=== PATIENT | female | born 1930 | race Caucasian/White ===

== ENCOUNTER 2018-06-11 10:28 | Inpatient (IN) | payer MEDICARE ==
[~2018-06-11] VITALS: Ht 167.6 cm; Wt 71.9 kg
[~2018-06-11 10:28] MED LIST: AMBIEN5 MG PO; CLARINEX5 MG; DIOVAN HCT 3201 EACH; ENABLEX15 MG; PAXIL CR12.5 MG; PLAVIX75 MG PO; PREVACID30 M1; TOPROL XL100 MG; TRICOR145 MG; ULTRACET TABLE1 EACH
[2018-06-11 11:20] LABS: BASOPHILS # (AUTO) 0.1 (0.0-0.1); EOSINOPHILS # (AUTO) 0.2 (0.0-0.4); EOSINOPHILS % 3.1 % (0.0-6.0); HEMATOCRIT 29.2 % (34.2-44.1); HEMOGLOBIN 9.7 g/dL (12.0-16.0); LYMPHOCYTES # (AUTO) 0.7 (1.0-3.2); LYMPHOCYTES % 11.3 % (18.0-39.1); MEAN CORPUSCULAR HEMOGLOBIN 31.4 pg (28-32); MEAN CORPUSCULAR HGB CONC 33.2 g/dL (31-35); MEAN CORPUSCULAR VOLUME 94.5 fL (81-99); MONOCYTES # (AUTO) 0.4 (0.2-0.8); MONOCYTES % 6.6 % (4.4-11.3); NEUTROPHILS # (AUTO) 4.7 (2.1-6.9); NEUTROPHILS % 77.8 % (38.7-80.0); PLATELET COUNT 226 x10e3/uL (140-360); RED BLOOD COUNT 3.09 x10e6/uL (3.6-5.1); RED CELL DISTRIBUTION WIDTH 13.4 % (11.7-14.4)
[2018-06-11] MEDS ORDERED: ASPIRIN 81 MG CHEW TAB PO ONE (11:30)
--- NOTE | 2018-06-11 12:12 | Diagnostic Imaging Report ---
EXAMINATION: CHEST SINGLE (PORTABLE) INDICATION: Rectal bleeding ^ERMD ORDER ^[id number] ^1130 ^Y COMPARISON: None FINDINGS: AP view TUBES and LINES: None. LUNGS: Lungs are well inflated. Lungs are clear. Bilateral central pulmonary vascular congestion. PLEURA: No pleural effusion or pneumothorax. HEART AND MEDIASTINUM: Moderate enlargement of the cardiac silhouette. BONES AND SOFT TISSUES: No acute osseous lesion. Soft tissues are unremarkable. UPPER ABDOMEN: No free air under the diaphragm. IMPRESSION: Moderate enlargement of the cardiac silhouette with associated bilateral central pulmonary congestion. Signed by: Dr. Matilde Dunn M.D. on 06/11/2018 12:09 PM
[2018-06-11 12:13] LABS: ALBUMIN 3.3 g/dL (3.5-5.0); ALBUMIN/GLOBULIN RATIO 1.1 (0.8-2.0); ANION GAP 14.6 mmol/L (8-16); CALCIUM 9.7 mg/dL (8.4-10.2); CREATININE, SERUM 1.12 mg/dL (0.57-1.11); POTASSIUM 3.6 mmol/L (3.5-5.1)
[2018-06-11 12:19] LABS: CREATINE KINASE MB 4.1 ng/mL (0-5.0)
--- OUTSIDE RECORDS SUMMARY | 2018-06-11 13:36 | XMS REPORT ---
Author Author [facility] Address Unknown Phone Unavailable Care Team Providers Care Warehouse Puller Name Role Phone Mariella VICK Unavailable Unavailable Problems This patient has no known problems. Allergies, Adverse Reactions, Alerts This patient has no known allergies or adverse reactions. Medications This patient has no known medications. Results Test Description Test Time Test Comments Text Results Atomic Results Result Comments CHEST SINGLE (PORTABLE) 2018-06-11 12:08:00 [place] [address] Patient Name: CORNELIA BARRIOS MR #: [id number] : 1930 Age/Sex: 88/F Req #: [id number] Adm Physician: Ordered by: ALYSHA VICK MD Report #: [id number] Location: ER Room/Bed: Procedure: [id number] DX/CHEST SINGLE (PORTABLE) Exam Date: 06/11/18 Exam Time: 1130 REPORT STATUS: Signed EXAMINATION: CHEST SINGLE (PORTABLE) INDICATION: Rectal bleeding ERMD ORDER [id number] 1130 Y COMPARISON: None FINDINGS: AP view TUBES and LINES: None. LUNGS: Lungs are well inflated. Lungs are clear. Bilateral central pulmonary vascular congestion. PLEURA: No pleural effusion or pneumothorax. HEART AND MEDIASTINUM: Moderate enlargement of the cardiac silhouette. BONES AND SOFT TISSUES: No acute osseous lesion. Soft tissues are unremarkable. UPPER ABDOMEN: No free air under the diaphragm. IMPRESSION: Moderate enlargement of the cardiac silhouette with associated bilateral central pulmonary congestion. Signed by: Dr. Yeison Dunn M.D. on 06/11/2018 12:09 PM Dictated By: YEISON DUNN MD 08 Transcribed By: ERICK on 06/11/181208 COPY TO: ALYSHA VICK MD
[2018-06-11] MEDS ORDERED: LEXAPRO10 MG PO (14:06)
[2018-06-11] MEDS ORDERED: TYLENOL WITH C1 EACH PEG (14:06)
[2018-06-11] MEDS ORDERED: TEMAZEPAM15 MG PO (14:06)
[2018-06-11] MEDS ORDERED: OXYBUTYNIN CHLOR5 M1 PO (14:06)
[2018-06-11] MEDS ORDERED: METOPROLOL TART50 MG PO (14:06)
[2018-06-11 14:27] VITALS: BP 172/54
[2018-06-11 14:45] VITALS: BP 172/54
[2018-06-11 14:57] VITALS: BP 172/84
[2018-06-11] MEDS: SODIUM CHLORIDE 0.9% 1000ML 1,000 ML IV SCH (15:37)
[2018-06-11] MEDS: METRONIDAZOLE 500 MG TAB PO SCH ×2 (15:37→22:17)
[2018-06-11 20:00] VITALS: BP 169/89
[2018-06-11 20:10] VITALS: BP 169/89
[2018-06-11] MEDS: ZOLPIDEM TARTRATE 5 MG TAB PO PRN (22:17)
[2018-06-11] MEDS ORDERED: FLAGYL250 MG TP (22:34)
[2018-06-11] MEDS ORDERED: TRETINOIN20 G2 TOP (22:34)
[2018-06-11] MEDS ORDERED: VITAMIN D32000 UNIT PO (22:34)
[2018-06-11] MEDS ORDERED: SULFACETAMIDE3.5 GM TOP (22:34)
[2018-06-11] MEDS ORDERED: BISACODYL 5 MG TAB EC PO ONE ×2 (22:41→23:00)
[2018-06-11] MEDS ORDERED: CITRATE OF MAGNESIA 300ML BOTTLE PO ONE ×2 (23:00→23:30)
[2018-06-11 23:51] VITALS: BP 174/80
[2018-06-12] VITALS (8 sets, daily range): BP systolic 146–179; BP diastolic 67–103
[2018-06-12] MEDS ORDERED: ONDANSETRON HCL INJ 2 MG/ML VIAL IV STA (00:25)
[2018-06-12] MEDS ORDERED: ONDANSETRON HCL INJ 2 MG/ML VIAL IV PRN (00:30)
[2018-06-12] MEDS: SODIUM CHLORIDE 0.9% 1000ML 1,000 ML IV SCH ×3 (01:46→21:21)
[2018-06-12 05:39] LABS: BASOPHILS % 0.7 % (0.0-1.0); EOSINOPHILS # (AUTO) 0.2 (0.0-0.4); HEMATOCRIT 26.4 % (34.2-44.1); HEMOGLOBIN 8.8 g/dL (12.0-16.0); LYMPHOCYTES % 18.8 % (18.0-39.1); MEAN CORPUSCULAR HEMOGLOBIN 31.4 pg (28-32); MEAN CORPUSCULAR HGB CONC 33.3 g/dL (31-35); MEAN CORPUSCULAR VOLUME 94.3 fL (81-99); MONOCYTES # (AUTO) 0.5 (0.2-0.8); MONOCYTES % 9.7 % (4.4-11.3); NEUTROPHILS # (AUTO) 3.6 (2.1-6.9); NEUTROPHILS % 66.4 % (38.7-80.0); PLATELET COUNT 183 x10e3/uL (140-360); RED CELL DISTRIBUTION WIDTH 13.3 % (11.7-14.4)
[2018-06-12 05:58] LABS: ANION GAP 13.1 mmol/L (8-16); CALCIUM 9.4 mg/dL (8.4-10.2); CREATININE, SERUM 0.94 mg/dL (0.57-1.11); POTASSIUM 3.1 mmol/L (3.5-5.1)
[2018-06-12] MEDS: METRONIDAZOLE 500 MG TAB PO SCH ×3 (06:10→21:21)
[2018-06-12] MEDS: DARIFENACIN HYDROBROMIDE 7.5 MG PO SCH (09:00)
[2018-06-12] MEDS: CLARINEX PO SCH (09:00)
[2018-06-12] MEDS: PANTOPRAZOLE 40 MG 10ML VIAL IV SCH (09:25)
[2018-06-12] MEDS: PAROXETINE HCL 12.5 MG TABSR PO SCH (09:25)
[2018-06-12] MEDS ORDERED: POTASSIUM CHLORIDE 20 MEQ TAB CR PO STA ×2 (11:53→17:49)
[2018-06-12] MEDS: HYDRALAZINE HCL 20 MG/ML VIAL IV PRN (12:23)
[2018-06-12] MEDS ORDERED: POTASSIUM CHLORIDE 20MEQ/100ML 200 ML IV ONE (13:30)
[2018-06-12] MEDS ORDERED: PROPOFOL IV EMULSION 10 MG/ML 50 ML VIAL ONE (19:06)
[2018-06-12] MEDS ORDERED: EPINEPHRINE HCL INJ 1 MG/ML AMP ONE (19:06)
[2018-06-12] MEDS: ZOLPIDEM TARTRATE 5 MG TAB PO PRN (22:57)
[2018-06-12 23:58] LABS: INR 1.07; PARTIAL THROMBOPLASTIN TIME 29.8 seconds (23.8-35.5); PROTHROMBIN TIME 14.9 seconds (11.9-14.5)
[2018-06-13] VITALS (7 sets, daily range): BP systolic 146–162; BP diastolic 67–82
[2018-06-13] MEDS ORDERED: SODIUM CHLORIDE 0.9% 250ML 250 ML ONE (02:25)
[2018-06-13 05:54] LABS: BASOPHILS % 0.5 % (0.0-1.0); EOSINOPHILS # (AUTO) 0.1 (0.0-0.4); EOSINOPHILS % 3.2 % (0.0-6.0); HEMOGLOBIN 7.3 g/dL (12.0-16.0); LYMPHOCYTES # (AUTO) 0.7 (1.0-3.2); LYMPHOCYTES % 16.9 % (18.0-39.1); MEAN CORPUSCULAR HEMOGLOBIN 31.1 pg (28-32); MEAN CORPUSCULAR HGB CONC 32.4 g/dL (31-35); MEAN CORPUSCULAR VOLUME 95.7 fL (81-99); MONOCYTES # (AUTO) 0.4 (0.2-0.8); MONOCYTES % 9.6 % (4.4-11.3); NEUTROPHILS # (AUTO) 3.1 (2.1-6.9); NEUTROPHILS % 69.6 % (38.7-80.0); PLATELET COUNT 168 x10e3/uL (140-360); RED BLOOD COUNT 2.35 x10e6/uL (3.6-5.1); RED CELL DISTRIBUTION WIDTH 13.3 % (11.7-14.4)
[2018-06-13 06:08] LABS: HEMATOCRIT 22.5 % (34.2-44.1)
[2018-06-13] MEDS: SODIUM CHLORIDE 0.9% 1000ML 1,000 ML IV SCH ×2 (06:33→16:00)
[2018-06-13] MEDS: METRONIDAZOLE 500 MG TAB PO SCH (06:33)
[2018-06-13 06:34] LABS: ANION GAP 14.1 mmol/L (8-16); BLOOD UREA NITROGEN 11 mg/dL (7-26); BUN/CREATININE RATIO 14 (6-25); CALCIUM 8.8 mg/dL (8.4-10.2); CARBON DIOXIDE 24 mmol/L (22-29); CHLORIDE 104 mmol/L (98-107); EST GLOMERULAR FILTRATION RATE > 60 ML/MIN (60-); GLUCOSE 70 mg/dL (74-118); MAGNESIUM 1.8 MG/DL (1.3-2.1); POTASSIUM 3.1 mmol/L (3.5-5.1); SODIUM 139 mmol/L (136-145)
[2018-06-13] MEDS ORDERED: SODIUM CHLORIDE 0.9% 250ML 250 ML IV ONE (06:45)
[2018-06-13] MEDS ORDERED: SODIUM CHLORIDE 0.9% 1000ML 250 ML IV SCH (07:30)
[2018-06-13] MEDS ORDERED: POTASSIUM CHLORIDE 20 MEQ TAB CR PO STA (08:06)
[2018-06-13] MEDS: PAROXETINE HCL 12.5 MG TABSR PO SCH (09:00)
[2018-06-13] MEDS: PANTOPRAZOLE 40 MG 10ML VIAL IV SCH (09:00)
[2018-06-13] MEDS: CLARINEX PO SCH (09:00)
[2018-06-13] MEDS: DARIFENACIN HYDROBROMIDE 7.5 MG PO SCH (09:00)
[2018-06-13] MEDS ORDERED: POTASSIUM CHLORIDE 20 MEQ TAB CR PO ONE (10:30)
[2018-06-13] MEDS: HYDRALAZINE HCL 20 MG/ML VIAL IV PRN ×2 (10:38→18:26)
[2018-06-13] MEDS: ACETAMINOPHEN 325 MG TAB PO PRN (16:08)
[2018-06-13] MEDS: METOPROLOL TARTRATE 50 MG TAB PO SCH (16:35)
[2018-06-13] MEDS: ZOLPIDEM TARTRATE 5 MG TAB PO PRN (23:06)
[2018-06-14] VITALS (9 sets, daily range): BP systolic 142–190; BP diastolic 67–89
[2018-06-14] MEDS: SODIUM CHLORIDE 0.9% 1000ML 1,000 ML IV SCH ×3 (01:18→22:00)
[2018-06-14] MEDS: ACETAMINOPHEN 325 MG TAB PO PRN ×2 (03:13→17:15)
[2018-06-14 06:15] LABS: BASOPHILS % 0.5 % (0.0-1.0); EOSINOPHILS # (AUTO) 0.2 (0.0-0.4); EOSINOPHILS % 2.8 % (0.0-6.0); HEMATOCRIT 26.5 % (34.2-44.1); HEMOGLOBIN 8.8 g/dL (12.0-16.0); LYMPHOCYTES # (AUTO) 0.7 (1.0-3.2); MEAN CORPUSCULAR HGB CONC 33.2 g/dL (31-35); MEAN CORPUSCULAR VOLUME 93.3 fL (81-99); MONOCYTES # (AUTO) 0.6 (0.2-0.8); MONOCYTES % 10.4 % (4.4-11.3); NEUTROPHILS # (AUTO) 4.5 (2.1-6.9); NEUTROPHILS % 74.8 % (38.7-80.0); PLATELET COUNT 171 x10e3/uL (140-360); RED BLOOD COUNT 2.84 x10e6/uL (3.6-5.1); RED CELL DISTRIBUTION WIDTH 14.5 % (11.7-14.4)
[2018-06-14 06:39] LABS: INR 1.07; PROTHROMBIN TIME 14.9 seconds (11.9-14.5)
[2018-06-14 06:41] LABS: ANION GAP 11.9 mmol/L (8-16); BLOOD UREA NITROGEN 9 mg/dL (7-26); BUN/CREATININE RATIO 12 (6-25); CALCIUM 9.4 mg/dL (8.4-10.2); CARBON DIOXIDE 26 mmol/L (22-29); CHLORIDE 101 mmol/L (98-107); CREATININE, SERUM 0.77 mg/dL (0.57-1.11); EST GLOMERULAR FILTRATION RATE > 60 ML/MIN (60-); GLUCOSE 86 mg/dL (74-118); MAGNESIUM 1.5 MG/DL (1.3-2.1); POTASSIUM 3.9 mmol/L (3.5-5.1); SODIUM 135 mmol/L (136-145)
[2018-06-14] MEDS: METOPROLOL TARTRATE 50 MG TAB PO SCH ×2 (09:00→16:52)
[2018-06-14] MEDS: PANTOPRAZOLE 40 MG 10ML VIAL IV SCH (09:00)
[2018-06-14] MEDS: DARIFENACIN HYDROBROMIDE 7.5 MG PO SCH (09:00)
[2018-06-14] MEDS: PAROXETINE HCL 12.5 MG TABSR PO SCH (09:00)
[2018-06-14] MEDS: CLARINEX PO SCH (09:00)
[2018-06-14] MEDS: HYDRALAZINE HCL 20 MG/ML VIAL IV PRN ×3 (09:01→23:15)
[2018-06-14] MEDS: ZOLPIDEM TARTRATE 5 MG TAB PO PRN (23:11)
[2018-06-15] VITALS (7 sets, daily range): BP systolic 137–182; BP diastolic 70–95
[2018-06-15] MEDS ORDERED: PHYTONADIONE 10 MG/ML AMP SQ ONE (01:00)
--- NOTE | 2018-06-15 03:13 | Progress Note ---
DATE: June 14, 2018 INTERNAL MEDICINE PROGRESS NOTE Covering for Dr. Bryson Amaya. SUBJECTIVE: Ms. Kohler remains with slightly elevated blood pressure. She is getting some p.r.n. blood pressure medicines. She received 2 units of FFP yesterday and 1 packed red blood cell unit yesterday as well. No clinical bleeding for the last couple of days. No nausea. No emesis. REVIEW OF SYSTEMS: No headaches, no chest pain. OBJECTIVE VITAL SIGNS: Afebrile. Vital signs noted per electronic record. GENERAL: In no acute distress, currently calm. HEENT: Normocephalic, atraumatic. NECK: Supple. Throat midline. LUNGS: Bilateral air entry, clear. CARDIOVASCULAR: S1, S2. No murmurs, rubs or gallops. ABDOMINAL: Soft, nontender. EXTREMITIES: No clubbing, no cyanosis. There is no edema. INTEGUMENT: No rash or purpura. LABS: Potassium 3.9, BUN 9, creatinine 0.8. White count 6, hematocrit 27, platelets 139,000. IMPRESSION 1. Gastrointestinal bleed, diverticular. 2. Hypertension. 3. History of bioprosthetic valve replacement. 4. Possible atrial fibrillation versus coronary artery disease, on Plavix as an outpatient. 5. Insomnia. 6. Allergies. PLAN: At this time, we will repeat labs in the morning. Follow up for clinical bleeding. Increase her diet. We still need to decide home health scheduler on the need for Plavix resumption based on her clinical needs. Repeat hematocrit in the morning. Control blood pressure. Job#: [id number]
[2018-06-15] MEDS: ACETAMINOPHEN 325 MG TAB PO PRN ×2 (04:00→10:03)
[2018-06-15] MEDS: HYDRALAZINE HCL 20 MG/ML VIAL IV PRN ×2 (04:53→08:53)
[2018-06-15 05:40] LABS: BASOPHILS % 0.4 % (0.0-1.0); EOSINOPHILS # (AUTO) 0.1 (0.0-0.4); EOSINOPHILS % 1.3 % (0.0-6.0); HEMATOCRIT 26.8 % (34.2-44.1); HEMOGLOBIN 9.2 g/dL (12.0-16.0); LYMPHOCYTES # (AUTO) 0.7 (1.0-3.2); LYMPHOCYTES % 8.6 % (18.0-39.1); MEAN CORPUSCULAR HEMOGLOBIN 31.5 pg (28-32); MEAN CORPUSCULAR HGB CONC 34.3 g/dL (31-35); MEAN CORPUSCULAR VOLUME 91.8 fL (81-99); MONOCYTES # (AUTO) 0.9 (0.2-0.8); NEUTROPHILS # (AUTO) 6.1 (2.1-6.9); NEUTROPHILS % 78.1 % (38.7-80.0); PLATELET COUNT 195 x10e3/uL (140-360); RED BLOOD COUNT 2.92 x10e6/uL (3.6-5.1); RED CELL DISTRIBUTION WIDTH 14.4 % (11.7-14.4)
--- NOTE | 2018-06-15 06:31 | Diagnostic Imaging Report ---
CHEST SINGLE (PORTABLE), 06/15/2018 5:00 AM Technique: CHEST SINGLE (PORTABLE) Comparison: 06/11/2018 Clinical history: Congestive heart failure Findings: See Impression Impression: 1. Stable enlarged cardiomediastinal silhouette with aortic calcifications. Large hiatal hernia. 2. Central vascular congestion and/or edema. No consolidation. 3. Small pleural effusions. Signed by: Dr Esther Solomon MD on 06/15/2018 6:28 AM
[2018-06-15] MEDS: CLARINEX PO SCH (09:00)
[2018-06-15] MEDS: PAROXETINE HCL 12.5 MG TABSR PO SCH (09:00)
[2018-06-15] MEDS: DARIFENACIN HYDROBROMIDE 7.5 MG PO SCH (09:47)
[2018-06-15] MEDS: PANTOPRAZOLE 40 MG 10ML VIAL IV SCH (09:47)
[2018-06-15] MEDS: METOPROLOL TARTRATE 50 MG TAB PO SCH (09:47)
[2018-06-15] MEDS ORDERED: FUROSEMIDE 20 MG TAB PO ONE (11:00)
--- NOTE | 2018-06-16 02:02 | Progress Note ---
DATE: No Dictation 00:04 seconds Job#: [id number]
--- NOTE | 2018-06-16 03:46 | Discharge Summary ---
Coverage for Dr. Amaya. PRIMARY CARE DOCTOR: Dr. Kaelyn Toussaint PRIMARY DIAGNOSES 1. Gastrointestinal bleed, acute. 2. Diverticulosis. SECONDARY DIAGNOSES 1. Atrial fibrillation history. 2. Plavix use. 3. Hypertension. 4. Reported bioprosthetic valve replacement. 5. Allergies. Please note, history was limited by patient and spouse's ability to provide history. HOSPITAL COURSE: Patient came in with bleed. Patient with bright red blood per rectum. Opening hematocrit was 29, but went to 22.5%. Patient received blood transfusions. Patient went for emergency endoscopy, which demonstrated multiple diverticulosis. The Plavix was stopped. Patient was given medical records of the chemistries, blood counts, as well as endoscopy report. Communication to be sent to her PCP to notify her of the need to decide soon if Plavix is obligatory versus optional. Furthermore, other options can be taken as per the treating team that knows her very well at [facility]. MEDICATION ON DISCHARGE: See discharge medication records for details. ACTIVITY: As tolerated. DIET: GI bland diet. FOLLOWUP: Follow up with Drs. Kaelyn Toussaint and Danny Smith within a couple of weeks. Greater than 30 minutes in care and coordination for this discharge. LEXIE RABAGO MD Job#: [id number] CQ
== END 2018-06-15 14:48 | disposition home or self-care (01) | DRG 378 ==
LOC: ER 10:28 → ERHOLD 13:34 → IMCU 14:23 → MED/SURG 18:15 → OBSVTOIN 06-13 13:07
PROVIDERS: ADMIT Internal Medicine; ATTEND Internal Medicine
PROC: 0DJD8ZZ Inspection of Lower Intestinal Tract, Via Natural or Artificial Opening Endoscopic (ICD-10-PCS; principal; 2018-06-12 15:47)
PROC: 30233K1 Transfusion of Nonautologous Frozen Plasma into Peripheral Vein, Percutaneous Approach (ICD-10-PCS; 2018-06-13)
PROC: 30233N1 Transfusion of Nonautologous Red Blood Cells into Peripheral Vein, Percutaneous Approach (ICD-10-PCS; 2018-06-13)
DX: K57.91 Diverticulosis of intestine, part unspecified, without perforation or abscess with bleeding (principal); D62 Acute posthemorrhagic anemia; D68.9 Coagulation defect, unspecified; I48.91 Unspecified atrial fibrillation; Z79.01 Long term (current) use of anticoagulants; I10 Essential (primary) hypertension; Z95.2 Presence of prosthetic heart valve; I25.10 Atherosclerotic heart disease of native coronary artery without angina pectoris; E78.5 Hyperlipidemia, unspecified; K21.9 Gastro-esophageal reflux disease without esophagitis; F32.9 Major depressive disorder, single episode, unspecified; Z88.0 Allergy status to penicillin; E87.6 Hypokalemia; G47.00 Insomnia, unspecified
CPT/HCPCS: 36415; 45378; 71045; 80048; 80053; 82550; 82553; 83690; 83735; 84484; 85025; 85610; 85730; 86850; 86900; 86920; 93005; 96367; 96374; 96376; 99284; G0378; J0171; J0360; J2405; J3430; J3480; J7030; J7050; P9016; P9017

== ENCOUNTER 2019-06-13 17:18 | Emergency (ER) | payer MEDICARE ==
[~2019-06-13] VITALS: Ht 160 cm; Wt 61.7 kg
[~2019-06-13 17:18] MED LIST changes: +FLAGYL250 MG TP; +LEXAPRO10 MG PO; +METOPROLOL TART50 MG PO; +OXYBUTYNIN CHLOR5 M1 PO; +SULFACETAMIDE3.5 GM TOP; +TEMAZEPAM15 MG PO; +TRETINOIN20 G2 TOP; +TYLENOL WITH C1 EACH PEG; +VITAMIN D32000 UNIT PO
[2019-06-13] MEDS ORDERED: TETANUS/DIPHTHERIA TOX ADULT 0.5 ML SYR IM ONE (18:15)
[2019-06-13] MEDS ORDERED: TETANUS/DIPHTHERIA TOX ADULT 0.5 ML SYR ONE (18:37)
[2019-06-13] MEDS ORDERED: SODIUM CHLORIDE 0.9% 500ML 500 ML IV ONE (19:00)
[2019-06-13] MEDS ORDERED: SODIUM CHLORIDE 0.9% 500ML 0 ML ONE (19:07)
[2019-06-13] MEDS ORDERED: MORPHINE SULFATE INJ 4 MG/ML INJ 1ML ONE (19:07)
--- NOTE | 2019-06-13 19:08 | Diagnostic Imaging Report ---
Exam: Right femur 2 views and hip 2 views History: Pain Comparison: None. Findings: No fracture or malalignment. Mild hip degenerative arthrosis. No abnormal soft tissue calcification or soft tissue defect. Impression: No acute osseous abnormality Signed by: Dr. Bryson Rosales M.D. on 06/13/2019 7:05 PM
[2019-06-13] MEDS ORDERED: MORPHINE SULFATE 2 MG/ML SYR 1ML IV ONE (19:15)
[2019-06-13] MEDS ORDERED: MORPHINE SULFATE 5 MG/ML VIAL IV ONE (19:15)
[2019-06-13] MEDS ORDERED: SODIUM CHLORIDE 0.9% 500ML 500 ML ONE (19:19)
[2019-06-13] MEDS ORDERED: HYDROCODONE/APAP 5MG-325MG TAB PO ONE (19:30)
--- NOTE | 2019-06-13 19:44 | Diagnostic Imaging Report ---
EXAMINATION: Head CT without contrast. HISTORY:Status post fall, patient on blood thinners. COMPARISON:None. TECHNIQUE: Multidetector axial images were obtained from the foramen magnum to the vertex without contrast. The images were reconstructed using brain and bone algorithms. Thin section brain images were reformatted into coronal and sagittal planes. Dose modulation, iterative reconstruction, and/or weight based adjustment of the mA/kV was utilized to reduce the radiation dose to as low as reasonably achievable. Intravenous contrast: None IMAGE QUALITY: Acceptable. FINDINGS: Skull/scalp: No lytic or blastic. lesions. No surgical changes. Parenchyma: Nonspecific bilateral frontoparietal confluent periventricular, subcortical and deep white matter hypodensity are likely related to small vessel ischemic changes. No acute hemorrhage, mass or acute major vascular territorial infarct. Arteries: No density suggestive of thrombosis. Dural sinuses: No abnormal density suggestive of thrombosis. Ventricles: No hydrocephalus or displacement. Extra-axial spaces: A 1 x 0.3 cm right frontal extra-axial calcified lesion may represent a small calcified meningioma. No surrounding mass effect or edema. Brain volume: Normal for age. Craniocervical junction: No mass, Chiari malformation, or basilar invagination. Sella: No mass. Paranasal/mastoid sinuses: Imaged portions unremarkable. IMPRESSION: No acute intracranial abnormality. Diffuse, severe supratentorial white matter microvascular ischemic changes versus chronic hypertensive encephalopathy. Signed by: Dr. Ina Fonseca M.D. on 06/13/2019 7:40 PM
--- NOTE | 2019-06-13 19:51 | Diagnostic Imaging Report ---
History: Status post fall. Comparison studies: None Technique: Axial images were obtained through the cervical region.. Coronal and sagittal images reconstructed from the axial data. Dose modulation, iterative reconstruction, and/or weight based adjustment of the mA/kV was utilized to reduce the radiation dose to as low as reasonably achievable. Intravenous contrast: None Findings: Fractures: None. Soft tissue injuries: None. Atlantoaxial articulation: Intact. Alignment: Reversal of normal cervical lordosis. No scoliosis. 2 mm grade 1 anterolisthesis at C2-C3, 3 mm grade 1 anterolisthesis at C3-C4, C4-C5 are likely degenerative. Cervicomedullary junction: No abnormalities. The foramen magnum is patent. Soft tissues: Atherosclerotic calcification in bilateral carotid bulb. Vertebrae: No fractures, infection or neoplasm. Degenerative changes: C2-C3: Mild bilateral foraminal stenosis due to facet and uncovertebral arthrosis. C3-C4: Severe right foraminal stenosis due to facet and uncovertebral arthrosis. C4-C5: Severe degenerative disc disease. Posterior disc osteophyte complex results in mild canal stenosis. Mild right and moderate left foraminal stenosis due to facet and uncovertebral arthrosis. C5-C6: Severe degenerative disc disease. Moderate right foraminal stenosis due to uncovertebral arthrosis. C6-C7: Moderate degenerative disc disease. Mild right foraminal stenosis due to uncovertebral arthrosis.. IMPRESSION: 1. No acute cervical spine fracture. Reversal of normal cervical lordosis may be positional, due to degenerative changes and/or muscle spasm. 2. Ligament, spinal cord and or vascular abnormalities cannot be excluded on the basis of this examination. 3. Grade 1 anterolisthesis at C2-C3, C3-C4 and C4-C5 are likely degenerative. 4. Multilevel cervical spondylosis as detailed above. Signed by: Dr. Ina Fonseca M.D. on 06/13/2019 7:47 PM
--- NOTE | 2019-06-13 20:00 | NUR ---
PT STATED SHE DOES NOT WANT TO BE ADMITTED TO THE MAIN HOSPITAL, DR SINGH NOTIFIED, PT IS AWARE OF RISK AND BENIFITS OF LEAVING AGAINST MEDICAL ADVICE, PT SIGNED AMA AND PLACED IN CHART
[2019-06-13 20:19] VITALS: BP 170/77
== END 2019-06-13 20:05 | disposition left against medical advice (07) ==
LOC: FSED 17:18
DX: S00.83XA Contusion of other part of head, initial encounter (principal); S70.11XA Contusion of right thigh, initial encounter; S40.211A Abrasion of right shoulder, initial encounter; M25.551 Pain in right hip; M16.11 Unilateral primary osteoarthritis, right hip; W18.30XA Fall on same level, unspecified, initial encounter; Y92.008 Other place in unspecified non-institutional (private) residence as the place of occurrence of the external cause; I10 Essential (primary) hypertension; I48.20 Chronic atrial fibrillation, unspecified; D64.9 Anemia, unspecified
CPT/HCPCS: 70450; 72125; 73502; 73552; 80053; 81003; 82270; 84484; 85025; 90471; 90714; 93005; 99284; J7040; J2270

== ENCOUNTER 2019-09-09 11:51 | Inpatient (IN) | payer MEDICARE ==
[~2019-09-09] VITALS: Ht 160 cm; Wt 58.1 kg
[2019-09-09] MEDS ORDERED: ONDANSETRON HCL INJ 2MG/ML 2ML 2 MG/ML VIAL IV STA (12:06)
[2019-09-09] MEDS ORDERED: SODIUM CHLORIDE 0.9% 1000ML 1,000 ML IV STA (12:06)
[2019-09-09] MEDS ORDERED: PANTOPRAZOLE 40 MG 10ML VIAL IV STA (12:06)
[2019-09-09] MEDS ORDERED: PANTOPRAZOLE 40 MG 10ML VIAL IV NR (12:30)
[2019-09-09 12:53] LABS: BASOPHILS % 0.3 % (0.0-1.0); EOSINOPHILS # (AUTO) 0.1 (0.0-0.4); LYMPHOCYTES # (AUTO) 0.6 (1.0-3.2); LYMPHOCYTES % 10.2 % (18.0-39.1); MEAN CORPUSCULAR HEMOGLOBIN 26.3 pg (28-32); MEAN CORPUSCULAR HGB CONC 29.7 g/dL (31-35); MEAN CORPUSCULAR VOLUME 88.5 fL (81-99); MONOCYTES # (AUTO) 0.3 (0.2-0.8); MONOCYTES % 4.4 % (4.4-11.3); NEUTROPHILS # (AUTO) 5.2 (2.1-6.9); NEUTROPHILS % 83.5 % (38.7-80.0); PLATELET COUNT 372 x10e3/uL (140-360); RED CELL DISTRIBUTION WIDTH 18.9 % (11.7-14.4)
[2019-09-09 13:14] LABS: INR 1.03
[2019-09-09 13:15] LABS: HEMATOCRIT 19.2 % (34.2-44.1); HEMOGLOBIN 5.7 g/dL (12.0-16.0); PARTIAL THROMBOPLASTIN TIME 36.5 seconds (23.8-35.5)
[2019-09-09] MEDS ORDERED: SODIUM CHLORIDE 0.9% 250ML 250 ML IV ONE (13:15)
[2019-09-09 13:16] LABS: RED BLOOD COUNT 2.17 x10e6/uL (3.6-5.1)
[2019-09-09 13:21] LABS: ALBUMIN 2.6 g/dL (3.5-5.0); ALBUMIN/GLOBULIN RATIO 0.9 (0.8-2.0); ANION GAP 13.4 mmol/L (8-16); CALCIUM 9.4 mg/dL (8.4-10.2); CREATININE, SERUM 0.92 mg/dL (0.57-1.11); MAGNESIUM 1.5 MG/DL (1.3-2.1); POTASSIUM 3.4 mmol/L (3.5-5.1)
[2019-09-09 13:40] LABS: THYROID STIMULATING HORMONE 2.318 uIU/mL (0.350-4.940)
--- NOTE | 2019-09-09 13:44 | Diagnostic Imaging Report ---
EXAMINATION: CHEST SINGLE (PORTABLE) INDICATION: ^UNABLE TO EAT, DYSPHAGIA TO SOLIDS ^[id number] ^1223 COMPARISON: 06/15/2018 FINDINGS: AP view TUBES and LINES: None. LUNGS: Lungs are well inflated. Bilateral central pulmonary vascular congestion. No lobar consolidations. The visualized trachea is patent. PLEURA: No pleural effusion or pneumothorax. HEART AND MEDIASTINUM: Stable moderate enlargement of the cardiac silhouette. Mild calcifications of the aortic arch. BONES AND SOFT TISSUES: No acute osseous lesion. Soft tissues are unremarkable. UPPER ABDOMEN: No free air under the diaphragm. IMPRESSION: Stable cardiomegaly with associated central pulmonary vascular congestion. Signed by: Dr. Matilde Dunn M.D. on 09/09/2019 1:41 PM
[2019-09-09] MEDS ORDERED: SODIUM CHLORIDE 0.9% 1000ML 1,000 ML IV ONE (14:30)
--- NOTE | 2019-09-09 14:40 | NUR ---
H&P [id number]
[2019-09-09] MEDS ORDERED: SODIUM CHLORIDE 0.9% 250ML 250 ML ONE ×2 (17:19→23:52)
[2019-09-09] MEDS: METOPROLOL TARTRATE 50 MG TAB PO SCH (17:51)
[2019-09-09 21:50] VITALS: BP 104/90
[2019-09-09] MEDS: TEMAZEPAM 15 MG CAP PO SCH (21:50)
--- NOTE | 2019-09-09 21:50 | NUR ---
patient received to room 187 via stretcher from the emergency room. vss. no c/o pain noted. patient to receive second unit of blood tonight. patient verbalizes understanding of this. admit assessment/history complete. call jarrell placed within reach. patient instructed to call for assistance when needed.
--- NOTE | 2019-09-09 21:58 | History and Physical ---
REASON FOR REFERRAL: GI bleeding. PRIMARY CARE DOCTOR: Dr. Kaelyn Toussaint, Kailee Escalera. HOSPITAL PHYSICIAN: Dr. Bryson Amaya. This is covering for Dr. Bryson Amaya. HISTORY OF PRESENT ILLNESS: Ms. Kohler is a pleasant 89-year-old female with weakness. The patient came to emergency room and hemoglobin was found to be 5.7. No balta GI bleeding. No nausea, no vomiting, no diarrhea. The patient had blood pressure of 125/86, heart rate 91. At this point, the patient was hospitalized. On rectal exam, the ER physician claimed he noted melena. PAST MEDICAL HISTORY: Atrial fibrillation, hypertension, possible bioprosthetic valve replacement. PAST SURGICAL HISTORY: The patient with history of multiple endoscopies in the past as noted per the records including colonoscopy report May 2018 with diverticulosis. History of dilation of esophageal stricture. MEDICATION: Medication list reviewed per the chart record. ALLERGIES: PENICILLINS. SOCIAL HISTORY: No smoking, no drinking, no drugs. FAMILY HISTORY: Noncontributory. REVIEW OF SYSTEMS: GENERAL: No weight changes. OPHTHALMOLOGIC: No floaters. ENT: No mouth ulcers. ENDOCRINE: No balta thyroid abnormality. PULMONARY: No asthma. CARDIAC: No heart attack. GI: No constipation. There is some diarrhea. : No blood in urine. NEUROLOGIC: No seizures. PSYCHIATRIC: No depression. LABORATORY DATA: Labs reviewed per the chart record. Coagulation time 1.03 INR. PHYSICAL EXAMINATION: VITAL SIGNS: Noted and reviewed per the chart record. GENERAL: In no acute distress. Alert and calm. HEENT: Normocephalic, atraumatic. NECK: Supple. Throat midline. LUNGS: Bilateral air entry, mostly clear, but a few rhonchi. CARDIOVASCULAR: S1 and S2. No murmurs, rubs, or gallops. ABDOMEN: Soft, nontender. EXTREMITIES: No clubbing, no cyanosis, no edema. INTEGUMENT: No rash. No purpura. IMPRESSION AND PLAN: 1. Symptomatic anemia. 2. Suspected upper GI bleed with reported melena. 3. History of diverticulosis. 4. History of esophageal stricture and dilatation. 5. History of atrial fibrillation, but no notes of any chronic anticoagulation. 6. Hypertension. 7. History of bioprosthetic valve replacement. 8. History of allergies. FOLLOWUP: Active treatment is ongoing. GI was reconsulted to evaluate. Hold blood thinners. Control blood pressure and other supportive therapy. Thank you very much, Dr. Kaelyn Toussaint in [facility]. Please call for questions. MD VIKKI Hernandez/MODL /[id number]
[2019-09-09 23:11] LABS: CREATINE KINASE MB 0.9 ng/mL (0-5.0)
[2019-09-10] VITALS (8 sets, daily range): BP systolic 106–160; BP diastolic 67–86
--- NOTE | 2019-09-10 | NUR ---
second unit of blood initiated and infusing without difficulty. vss. no c/o pain noted. respirations even and unlabored. no transfusion reaction noted after 30 min.
[2019-09-10] MEDS: PANTOPRAZOLE 40 MG 10ML VIAL IV SCH ×3 (02:44→20:13)
--- NOTE | 2019-09-10 03:40 | NUR ---
Second unit of blood complete at this time. vss. no c/o pain noted. respirations even and unlabored. no blood transfusion reaction noted.
[2019-09-10 05:50] LABS: BASOPHILS % 0.4 % (0.0-1.0); EOSINOPHILS # (AUTO) 0.1 (0.0-0.4); EOSINOPHILS % 2.6 % (0.0-6.0); HEMOGLOBIN 7.2 g/dL (12.0-16.0); LYMPHOCYTES # (AUTO) 0.9 (1.0-3.2); LYMPHOCYTES % 19.4 % (18.0-39.1); MEAN CORPUSCULAR HEMOGLOBIN 27.8 pg (28-32); MEAN CORPUSCULAR HGB CONC 31.9 g/dL (31-35); MEAN CORPUSCULAR VOLUME 87.3 fL (81-99); MONOCYTES # (AUTO) 0.4 (0.2-0.8); MONOCYTES % 8.6 % (4.4-11.3); NEUTROPHILS # (AUTO) 3.2 (2.1-6.9); NEUTROPHILS % 68.6 % (38.7-80.0); PLATELET COUNT 253 x10e3/uL (140-360); RED BLOOD COUNT 2.59 x10e6/uL (3.6-5.1); RED CELL DISTRIBUTION WIDTH 17.1 % (11.7-14.4)
[2019-09-10 06:13] LABS: CREATINE KINASE MB 1.5 ng/mL (0-5.0)
[2019-09-10 06:14] LABS: HEMATOCRIT 22.6 % (34.2-44.1)
[2019-09-10 06:46] LABS: ALANINE AMINOTRANSFERASE 7 IU/L (0-55); ALBUMIN 2.2 g/dL (3.5-5.0); ALBUMIN/GLOBULIN RATIO 0.9 (0.8-2.0); ALKALINE PHOSPHATASE 61 IU/L (40-150); ANION GAP 10.1 mmol/L (8-16); BLOOD UREA NITROGEN 35 mg/dL (7-26); BUN/CREATININE RATIO 43 (6-25); CALCIUM 8.7 mg/dL (8.4-10.2); CARBON DIOXIDE 27 mmol/L (22-29); CHLORIDE 107 mmol/L (98-107); CREATININE, SERUM 0.81 mg/dL (0.57-1.11); EST GLOMERULAR FILTRATION RATE > 60 ML/MIN (60-); GLUCOSE 89 mg/dL (74-118); POTASSIUM 3.1 mmol/L (3.5-5.1); SODIUM 141 mmol/L (136-145)
--- NOTE | 2019-09-10 07:41 | NUR ---
PT VS STABLE, LEAVING FOR PROCEDURE
--- NOTE | 2019-09-10 09:57 | Consultation ---
DATE OF CONSULTATION: 09/10/2019 HISTORY OF PRESENT ILLNESS: This is an 89-year-old, who presented to the hospital because of weakness and was found to have anemia with hemoglobin 5.7, and also apparently has been having some black stool. She denies any abdominal pain along with this problem. PAST MEDICAL PROBLEMS: Include atrial fibrillation, hypertension, possible bioprosthetic valve replacement. ALLERGIES: PENICILLIN. SOCIAL HISTORY: No alcohol use. FAMILY HISTORY: Noncontributory. MEDICATIONS: At home includin. . 2. Lexapro. 3. Tricor. 4. Prevacid. 5. Metoprolol. 6. Flagyl. 7. Temazepam. REVIEW OF SYSTEMS: Denies any chest pain or shortness of breath. Denies any dyspepsia or dysphagia. Denies any odynophagia. Denies any dysuria, hematuria, or any kind of syncopal episode. PHYSICAL EXAMINATION: GENERAL: Awake, alert, appears to be stable. Not in acute distress at this point. VITAL SIGNS: Afebrile, currently without vital signs. HEAD, EYES, EARS, NOSE, AND THROAT: Normocephalic, atraumatic. Sclerae are anicteric. NECK: Supple. HEART: Regular. LUNGS: Clear. ABDOMEN: Soft. There is no distention at this point and is nontender. EXTREMITIES: No clubbing. LABORATORY VALUES: Significant for today WBC 4.63, hemoglobin of 7.2, after blood transfusions, it was 5.7 on admissions, hematocrit of 22.6 and BUN of 35 and a creatinine of 0.8. Liver enzymes appear to be normal on admission. IMPRESSION: 1. Gastrointestinal bleed with melena. 2. Dysphagia. 3. Atrial fibrillation. RECOMMENDATION: Continue on proton pump inhibitor at this point. We will proceed with EGD for further evaluation today. Follow labs and transfuse as needed. Maximilian Haro MD DHD/MODL /[id number] cc: Dr. Sisi Hollis MD
[2019-09-10] MEDS: METOPROLOL TARTRATE 50 MG TAB PO SCH ×2 (09:59→16:33)
[2019-09-10] MEDS: ESCITALOPRAM OXALATE 10 MG TAB PO SCH (09:59)
[2019-09-10] MEDS: OXYBUTYNIN CHLORIDE XL 5 MG TAB PO SCH (09:59)
[2019-09-10] MEDS: HYDROCHLOROTHIAZIDE 25 MG TAB PO SCH (09:59)
[2019-09-10] MEDS: VALSARTAN 160 MG TAB PO SCH (09:59)
[2019-09-10] MEDS: SUCRALFATE 1 GM TAB PO SCH ×3 (11:45→20:13)
[2019-09-10 12:03] LABS: BASOPHILS % 0.7 % (0.0-1.0); EOSINOPHILS # (AUTO) 0.2 (0.0-0.4); EOSINOPHILS % 2.6 % (0.0-6.0); HEMATOCRIT 24.6 % (34.2-44.1); HEMOGLOBIN 7.7 g/dL (12.0-16.0); LYMPHOCYTES # (AUTO) 0.7 (1.0-3.2); LYMPHOCYTES % 12.4 % (18.0-39.1); MEAN CORPUSCULAR HEMOGLOBIN 27.5 pg (28-32); MEAN CORPUSCULAR HGB CONC 31.3 g/dL (31-35); MEAN CORPUSCULAR VOLUME 87.9 fL (81-99); MONOCYTES # (AUTO) 0.4 (0.2-0.8); MONOCYTES % 6.2 % (4.4-11.3); NEUTROPHILS # (AUTO) 4.5 (2.1-6.9); NEUTROPHILS % 77.6 % (38.7-80.0); PLATELET COUNT 258 x10e3/uL (140-360); RED CELL DISTRIBUTION WIDTH 17.8 % (11.7-14.4)
[2019-09-10 15:11] LABS: BILIRUBIN,URINE NEGATIVE (NEGATIVE); CLARITY,URINE SL CLOUDY (CLEAR); COLOR,URINE YELLOW (YELLOW); KETONES,URINE NEGATIVE (NEGATIVE); LEUKOCYTE ESTERASE ,URINE NEGATIVE (NEGATIVE); NITRITE,URINE NEGATIVE (NEGATIVE); PROTEIN,URINE DIPSTICK NEGATIVE (NEGATIVE); URINE UROBILINOGEN 0.2 mg/dL (0.2 - 1)
[2019-09-10 15:18] LABS: BACTERIA,URINE RARE /HPF; RBC,URINE 0-5 /HPF (0-5); WBC,URINE (MAN) 0-5 /HPF (0-5)
[2019-09-10] MEDS ORDERED: PROPOFOL IV EMULSION 10 MG/ML 20 ML VIAL ONE (18:21)
[2019-09-10] MEDS ORDERED: LIDOCAINE HCL 2% LOCAL INJ 5 ML SDV VIAL INJ ONE (18:21)
[2019-09-10 19:21] LABS: BASOPHILS % 0.8 % (0.0-1.0); EOSINOPHILS # (AUTO) 0.1 (0.0-0.4); EOSINOPHILS % 2.9 % (0.0-6.0); HEMATOCRIT 23.4 % (34.2-44.1); HEMOGLOBIN 7.5 g/dL (12.0-16.0); LYMPHOCYTES # (AUTO) 0.8 (1.0-3.2); LYMPHOCYTES % 15.9 % (18.0-39.1); MEAN CORPUSCULAR HEMOGLOBIN 27.8 pg (28-32); MEAN CORPUSCULAR HGB CONC 32.1 g/dL (31-35); MEAN CORPUSCULAR VOLUME 86.7 fL (81-99); MONOCYTES # (AUTO) 0.4 (0.2-0.8); MONOCYTES % 7.3 % (4.4-11.3); NEUTROPHILS # (AUTO) 3.5 (2.1-6.9); NEUTROPHILS % 72.7 % (38.7-80.0); PLATELET COUNT 277 x10e3/uL (140-360); RED CELL DISTRIBUTION WIDTH 17.9 % (11.7-14.4)
[2019-09-10] MEDS: TEMAZEPAM 15 MG CAP PO SCH (20:13)
[2019-09-10] MEDS: ACETAMINOPHEN/CODEINE 300MG - 30MG TAB PO PRN ×2 (20:13→23:37)
[2019-09-11] VITALS (7 sets, daily range): BP systolic 129–151; BP diastolic 63–90
--- NOTE | 2019-09-11 01:28 | NUR ---
INTERNAL MEDICINE DATE 09/10/19 PRIMARY C[facility] This is covering for Dr. Bryson Amaya. SUBJECTIVE: 97% SAT RA FiO2 egd with gastritis, hiatal hernia 2 u PRBC REVIEW OF SYSTEMS: no headaches, no rash PHYSICAL EXAMINATION: VITAL SIGNS: reviewed per the chart record. GENERAL: no acute distress. Alert, calm. HEENT: Normocephalic, atraumatic. NECK: Supple. Throat midline. LUNGS: Bilateral air entry, mostly clear, but a few rhonchi. CARDIOVASCULAR: S1 and S2. No murmurs, rubs, or gallops. ABDOMEN: Soft, nontender. EXTREMITIES: No clubbing, no cyanosis, no edema. INTEGUMENT: No rash. No purpura. k 3.1 cr 0.81 hb 7.7 hct 24.6 IMPRESSION AND PLAN: 1. Symptomatic anemia. 2. Suspected upper GI bleed with reported melena. 3. History of diverticulosis. 4. History of esophageal stricture and dilatation. 5. History of atrial fibrillation, but no notes of any chronic anticoagulation. 6. Hypertension. 7. History of bioprosthetic valve replacement. 8. History of allergies. 9. egd hiatal hernia, gastritis GI EGD today serial h/h Hold blood thinners. Control blood pressure and other supportive therapy. Thank you very much, Dr. Kaelyn Toussaint in [facility]. Please call for questions.
[2019-09-11] MEDS: ACETAMINOPHEN/CODEINE 300MG - 30MG TAB PO PRN (05:16)
[2019-09-11 08:27] LABS: BASOPHILS % 0.7 % (0.0-1.0); EOSINOPHILS # (AUTO) 0.2 (0.0-0.4); EOSINOPHILS % 4.5 % (0.0-6.0); HEMATOCRIT 23.8 % (34.2-44.1); HEMOGLOBIN 7.7 g/dL (12.0-16.0); LYMPHOCYTES # (AUTO) 0.7 (1.0-3.2); LYMPHOCYTES % 14.5 % (18.0-39.1); MEAN CORPUSCULAR HEMOGLOBIN 28.3 pg (28-32); MEAN CORPUSCULAR HGB CONC 32.4 g/dL (31-35); MEAN CORPUSCULAR VOLUME 87.5 fL (81-99); MONOCYTES # (AUTO) 0.4 (0.2-0.8); MONOCYTES % 9.1 % (4.4-11.3); NEUTROPHILS # (AUTO) 3.2 (2.1-6.9); PLATELET COUNT 278 x10e3/uL (140-360); RED BLOOD COUNT 2.72 x10e6/uL (3.6-5.1); RED CELL DISTRIBUTION WIDTH 17.9 % (11.7-14.4)
[2019-09-11] MEDS: SUCRALFATE 1 GM TAB PO SCH ×4 (09:11→22:26)
[2019-09-11] MEDS: PANTOPRAZOLE 40 MG 10ML VIAL IV SCH ×2 (09:11→22:26)
[2019-09-11] MEDS: OXYBUTYNIN CHLORIDE XL 5 MG TAB PO SCH (09:12)
[2019-09-11] MEDS: ESCITALOPRAM OXALATE 10 MG TAB PO SCH (09:12)
[2019-09-11] MEDS: VALSARTAN 160 MG TAB PO SCH (09:12)
[2019-09-11] MEDS: HYDROCHLOROTHIAZIDE 25 MG TAB PO SCH (09:12)
[2019-09-11] MEDS: METOPROLOL TARTRATE 50 MG TAB PO SCH ×2 (09:12→18:40)
[2019-09-11 11:57] LABS: BASOPHILS % 0.6 % (0.0-1.0); EOSINOPHILS # (AUTO) 0.2 (0.0-0.4); EOSINOPHILS % 3.9 % (0.0-6.0); HEMATOCRIT 25.8 % (34.2-44.1); HEMOGLOBIN 8.1 g/dL (12.0-16.0); LYMPHOCYTES # (AUTO) 0.6 (1.0-3.2); LYMPHOCYTES % 13.2 % (18.0-39.1); MEAN CORPUSCULAR HEMOGLOBIN 27.3 pg (28-32); MEAN CORPUSCULAR HGB CONC 31.4 g/dL (31-35); MEAN CORPUSCULAR VOLUME 86.9 fL (81-99); MONOCYTES # (AUTO) 0.3 (0.2-0.8); MONOCYTES % 7.3 % (4.4-11.3); NEUTROPHILS # (AUTO) 3.5 (2.1-6.9); NEUTROPHILS % 74.6 % (38.7-80.0); PLATELET COUNT 287 x10e3/uL (140-360); RED BLOOD COUNT 2.97 x10e6/uL (3.6-5.1)
--- NOTE | 2019-09-11 17:36 | NUR ---
Nutrition Screen Note RD Recommendation for Physician: - Continue current diet Plan of Care: RD following, monitoring for tolerance and adequacy Nutrition reason for involvement: Nutrition Risk Trigger- MST 4 Primary Diagnose(s): Afib, dysphagia, GI bleed PMH: diverticulosis, GI bleed, Afib, esophageal stricture and dilation, HTN, hiatal hernia Ht: 63 in Wt: 136 lb BMI: 24.1 kg/m2 IBW: [address] Assessment: (09/11) 89 YOF admitted for Afib, dysphagia, GI bleed, and melena. Pt seen today per MST screen. 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 Pt reports appetite and intake have improved, states eating well today. Pt reports that she continues with diarrhea- 2 BM today. Pt reports UBW of 146# 3-4 months ago, 10# wt loss noted- so significant change. Pt declined supplements, states she does not like them. No questions or concerns at time of visit. Pt s/p EGD per MD notes, results unavailable in chart. Chart reviewed. Labs and meds reviewed. Will continue to monitor. Current Diet: GI Soft Malnutrition Evaluation (09/11/19) The patient does not meet criteria for a specified degree of malnutrition at this time. Will re-evaluate at follow-up as appropriate. Energy intake: Mild- decreased appetite x 1 week, intake and appetite have improved Weight loss: Minor wt changes in 3-4 months, 10# wt loss Fat loss: none Muscle loss: none, shoulder round Supporting Evidence: Fluid accumulation: none Functional Status: not assessed Diet Education Needs Assessment: Diet education not indicated. Diet tolerance: tolerating po Nutrition Care Level: Low Signed: Faviola Madison RD, LD, [facility]
--- NOTE | 2019-09-11 18:43 | NUR ---
pt is pending PT and SNF eval. reported to dr solorzano that i witnessed black in pt underwear when assisted to BSC, although unsure if from vaginal or rectal area. pt had visitors and did not want further assessment. MD Aware and no new plans at this time.
[2019-09-11 19:09] LABS: BASOPHILS % 0.3 % (0.0-1.0); EOSINOPHILS # (AUTO) 0.2 (0.0-0.4); EOSINOPHILS % 2.5 % (0.0-6.0); HEMATOCRIT 25.2 % (34.2-44.1); HEMOGLOBIN 7.9 g/dL (12.0-16.0); LYMPHOCYTES # (AUTO) 0.7 (1.0-3.2); LYMPHOCYTES % 11.7 % (18.0-39.1); MEAN CORPUSCULAR HEMOGLOBIN 27.7 pg (28-32); MEAN CORPUSCULAR HGB CONC 31.3 g/dL (31-35); MEAN CORPUSCULAR VOLUME 88.4 fL (81-99); MONOCYTES # (AUTO) 0.5 (0.2-0.8); MONOCYTES % 7.6 % (4.4-11.3); NEUTROPHILS # (AUTO) 4.7 (2.1-6.9); NEUTROPHILS % 77.6 % (38.7-80.0); PLATELET COUNT 306 x10e3/uL (140-360); RED BLOOD COUNT 2.85 x10e6/uL (3.6-5.1); RED CELL DISTRIBUTION WIDTH 18.1 % (11.7-14.4)
[2019-09-11] MEDS: TEMAZEPAM 15 MG CAP PO SCH (22:26)
[2019-09-12] VITALS (9 sets, daily range): BP systolic 142–157; BP diastolic 69–88
[2019-09-12 00:19] LABS: BASOPHILS % 0.5 % (0.0-1.0); EOSINOPHILS # (AUTO) 0.2 (0.0-0.4); EOSINOPHILS % 3.1 % (0.0-6.0); HEMOGLOBIN 7.6 g/dL (12.0-16.0); LYMPHOCYTES # (AUTO) 0.8 (1.0-3.2); LYMPHOCYTES % 12.6 % (18.0-39.1); MEAN CORPUSCULAR HEMOGLOBIN 28.1 pg (28-32); MEAN CORPUSCULAR HGB CONC 33.2 g/dL (31-35); MONOCYTES # (AUTO) 0.5 (0.2-0.8); MONOCYTES % 8.5 % (4.4-11.3); NEUTROPHILS # (AUTO) 4.6 (2.1-6.9); PLATELET COUNT 277 x10e3/uL (140-360); RED CELL DISTRIBUTION WIDTH 18.1 % (11.7-14.4)
[2019-09-12 00:27] LABS: MEAN CORPUSCULAR VOLUME 84.8 fL (81-99)
[2019-09-12 00:29] LABS: HEMATOCRIT 22.9 % (34.2-44.1)
--- NOTE | 2019-09-12 04:48 | NUR ---
INTERNAL MEDICINE DATE 09/11/19 PRIMARY CARE DOCTOR: Dr. Kaelyn Toussaint, [facility]. This is covering for Dr. Bryson Amaya. SUBJECTIVE: 94% sat RA FiO2 weak family/friends feel patient cannot go home alone d/w GI. conservative follow REVIEW OF SYSTEMS: no headaches, no rash PHYSICAL EXAMINATION: VITAL SIGNS: reviewed per the chart record. GENERAL: no acute distress. Alert, calm. HEENT: Normocephalic, atraumatic. NECK: Supple. Throat midline. LUNGS: Bilateral air entry, mostly clear, but a few rhonchi. CARDIOVASCULAR: S1 and S2. No murmurs, rubs, or gallops. ABDOMEN: Soft, nontender. EXTREMITIES: No clubbing, no cyanosis, no edema. INTEGUMENT: No rash. No purpura. hb 7.7 IMPRESSION AND PLAN: 1. Symptomatic anemia. 2. Suspected upper GI bleed with reported melena. 3. History of diverticulosis. 4. History of esophageal stricture and dilatation. 5. History of atrial fibrillation, but no notes of any chronic anticoagulation. 6. Hypertension. 7. History of bioprosthetic valve replacement. 8. History of allergies. 9. egd hiatal hernia, gastritis GI wants conservative follow up serial h/h Hold blood thinners. Control blood pressure and other supportive therapy. Home vs SNF per family
[2019-09-12 05:39] LABS: BASOPHILS % 0.4 % (0.0-1.0); EOSINOPHILS # (AUTO) 0.2 (0.0-0.4); EOSINOPHILS % 3.6 % (0.0-6.0); HEMATOCRIT 24.3 % (34.2-44.1); HEMOGLOBIN 7.7 g/dL (12.0-16.0); LYMPHOCYTES % 17.7 % (18.0-39.1); MEAN CORPUSCULAR HEMOGLOBIN 27.8 pg (28-32); MEAN CORPUSCULAR HGB CONC 31.7 g/dL (31-35); MEAN CORPUSCULAR VOLUME 87.7 fL (81-99); MONOCYTES # (AUTO) 0.5 (0.2-0.8); MONOCYTES % 9.5 % (4.4-11.3); NEUTROPHILS # (AUTO) 3.8 (2.1-6.9); NEUTROPHILS % 68.4 % (38.7-80.0); PLATELET COUNT 290 x10e3/uL (140-360); RED BLOOD COUNT 2.77 x10e6/uL (3.6-5.1); RED CELL DISTRIBUTION WIDTH 18.2 % (11.7-14.4)
[2019-09-12] MEDS: SUCRALFATE 1 GM TAB PO SCH ×5 (09:14→20:39)
[2019-09-12] MEDS: ESCITALOPRAM OXALATE 10 MG TAB PO SCH ×2 (09:20→09:23)
[2019-09-12] MEDS: OXYBUTYNIN CHLORIDE XL 5 MG TAB PO SCH ×2 (09:20→09:23)
[2019-09-12] MEDS: PANTOPRAZOLE 40 MG 10ML VIAL IV SCH ×3 (09:20→20:39)
[2019-09-12] MEDS: VALSARTAN 160 MG TAB PO SCH ×2 (09:20→09:22)
[2019-09-12] MEDS: HYDROCHLOROTHIAZIDE 25 MG TAB PO SCH ×2 (09:20→09:24)
[2019-09-12] MEDS: METOPROLOL TARTRATE 50 MG TAB PO SCH ×3 (09:20→19:41)
[2019-09-12 12:19] LABS: BASOPHILS % 0.3 % (0.0-1.0); EOSINOPHILS # (AUTO) 0.2 (0.0-0.4); EOSINOPHILS % 2.7 % (0.0-6.0); HEMATOCRIT 25.6 % (34.2-44.1); HEMOGLOBIN 8.2 g/dL (12.0-16.0); LYMPHOCYTES # (AUTO) 0.8 (1.0-3.2); LYMPHOCYTES % 12.9 % (18.0-39.1); MEAN CORPUSCULAR VOLUME 87.4 fL (81-99); MONOCYTES # (AUTO) 0.5 (0.2-0.8); MONOCYTES % 8.8 % (4.4-11.3); NEUTROPHILS # (AUTO) 4.4 (2.1-6.9); NEUTROPHILS % 74.8 % (38.7-80.0); PLATELET COUNT 298 x10e3/uL (140-360); RED BLOOD COUNT 2.93 x10e6/uL (3.6-5.1); RED CELL DISTRIBUTION WIDTH 18.2 % (11.7-14.4)
--- NOTE | 2019-09-12 15:20 | NUR ---
Spoke to Elmo with PT and he is recommending SNF. CM to pt's bedside to follow up on choice. Pt states she wants [facility]. Signed choice letter placed in front of chart. Copy to pt. Referral was faxed to [facility] admissions at [phone] / P [phone].
[2019-09-12 19:38] LABS: BASOPHILS % 0.4 % (0.0-1.0); EOSINOPHILS # (AUTO) 0.2 (0.0-0.4); EOSINOPHILS % 2.9 % (0.0-6.0); HEMATOCRIT 27.5 % (34.2-44.1); HEMOGLOBIN 8.8 g/dL (12.0-16.0); LYMPHOCYTES # (AUTO) 0.9 (1.0-3.2); LYMPHOCYTES % 12.2 % (18.0-39.1); MEAN CORPUSCULAR HEMOGLOBIN 27.8 pg (28-32); MEAN CORPUSCULAR VOLUME 86.8 fL (81-99); MONOCYTES # (AUTO) 0.6 (0.2-0.8); MONOCYTES % 8.4 % (4.4-11.3); NEUTROPHILS # (AUTO) 5.5 (2.1-6.9); NEUTROPHILS % 75.7 % (38.7-80.0); PLATELET COUNT 362 x10e3/uL (140-360); RED BLOOD COUNT 3.17 x10e6/uL (3.6-5.1); RED CELL DISTRIBUTION WIDTH 18.4 % (11.7-14.4)
--- NOTE | 2019-09-12 19:55 | NUR ---
DAY SHIFT KATHERINE COSTA MISTAKENLY CHARTED SEPSIS SCREENING @ 0940 & 1043 ("UNDONE" @ 1043) AND CARE PLAN REVIEWED BY RN Q24 HRS UNDER MAMADOU HOROWITZ'S LOGIN ID. MEDICATIONS WERE ADMINISTERED AND "UNDONE" UNDER MAMADOU HOROWITZ'S LOGIN ID.
[2019-09-12] MEDS: TEMAZEPAM 15 MG CAP PO SCH (21:29)
[2019-09-13] VITALS (8 sets, daily range): BP systolic 111–158; BP diastolic 56–91
--- NOTE | 2019-09-13 00:18 | NUR ---
INTERNAL MEDICINE DATE 09/12/19 PRIMARY CARE DOCTOR: Dr. Kaelyn Toussaint, Ka[facility] Escalera. This is covering for Dr. Bryson Amaya. SUBJECTIVE: No gi bleed noted today BM+ uses walker to ambulate. standby assist, but very slow and deconditioned REVIEW OF SYSTEMS: no headaches, no rash PHYSICAL EXAMINATION: VITAL SIGNS: reviewed per the chart record. GENERAL: no acute distress. Alert, calm. HEENT: Normocephalic, atraumatic. NECK: Supple. Throat midline. LUNGS: Bilateral air entry, mostly clear, but a few rhonchi. CARDIOVASCULAR: S1 and S2. No murmurs, rubs, or gallops. ABDOMEN: Soft, nontender. EXTREMITIES: No clubbing, no cyanosis, no edema. INTEGUMENT: No rash. No purpura. hb 8.8 IMPRESSION AND PLAN: 1. Symptomatic anemia. 2. Upper GI bleed, melena. Mostly due to hiatal hernia related gastritis. 3. History of diverticulosis. 4. History of esophageal stricture and dilatation. 5. History of atrial fibrillation 6. Hypertension. 7. History of bioprosthetic valve replacement. 8. History of allergies. 9. egd hiatal hernia, gastritis GI wants conservative follow up serial h/h Hold blood thinners. Control blood pressure and other supportive therapy. SNF per family, possible to [facility]
[2019-09-13 05:47] LABS: BASOPHILS % 0.4 % (0.0-1.0); EOSINOPHILS # (AUTO) 0.2 (0.0-0.4); EOSINOPHILS % 3.2 % (0.0-6.0); HEMATOCRIT 26.5 % (34.2-44.1); HEMOGLOBIN 8.3 g/dL (12.0-16.0); LYMPHOCYTES # (AUTO) 0.9 (1.0-3.2); LYMPHOCYTES % 13.6 % (18.0-39.1); MEAN CORPUSCULAR HEMOGLOBIN 27.7 pg (28-32); MEAN CORPUSCULAR HGB CONC 31.3 g/dL (31-35); MEAN CORPUSCULAR VOLUME 88.3 fL (81-99); MONOCYTES # (AUTO) 0.9 (0.2-0.8); MONOCYTES % 12.7 % (4.4-11.3); NEUTROPHILS # (AUTO) 4.8 (2.1-6.9); NEUTROPHILS % 69.7 % (38.7-80.0); PLATELET COUNT 300 x10e3/uL (140-360); RED CELL DISTRIBUTION WIDTH 18.1 % (11.7-14.4)
[2019-09-13] MEDS: SUCRALFATE 1 GM TAB PO SCH ×4 (08:03→20:54)
[2019-09-13] MEDS: PANTOPRAZOLE 40 MG 10ML VIAL IV SCH ×2 (08:51→20:54)
[2019-09-13] MEDS: OXYBUTYNIN CHLORIDE XL 5 MG TAB PO SCH (08:51)
[2019-09-13] MEDS: ESCITALOPRAM OXALATE 10 MG TAB PO SCH (08:51)
[2019-09-13] MEDS: VALSARTAN 160 MG TAB PO SCH (09:49)
[2019-09-13] MEDS: HYDROCHLOROTHIAZIDE 25 MG TAB PO SCH (09:49)
[2019-09-13] MEDS: METOPROLOL TARTRATE 50 MG TAB PO SCH ×2 (09:49→17:20)
[2019-09-13] MEDS: ACETAMINOPHEN/CODEINE 300MG - 30MG TAB PO PRN (10:55)
--- NOTE | 2019-09-13 13:59 | NUR ---
Second PT note faxed to [facility] at [phone].
--- NOTE | 2019-09-13 17:35 | Progress Note ---
DATE: 09/13/2019 SAP BPC DEVELOPER: Dr. Haro with GI. CHIEF COMPLAINT: GI bleed and dysphagia. SUBJECTIVE: The patient is resting in bed with no acute distress. Tolerating diet, heart rate controlled. She denies any chest pain, palpitations, or shortness of breath. PHYSICAL EXAMINATION: VITAL SIGNS: Temperature 98.8, pulse is 83, respirations 15, blood pressure 138/79, and pulse ox is 97% on room air. GENERAL: No acute distress. HEENT: Normocephalic and atraumatic. NECK: Supple. CARDIOVASCULAR: Regular rate. LUNGS: Clear to auscultation. ABDOMEN: Soft and nontender. NEUROLOGIC: Alert, awake, and oriented x3. MUSCULOSKELETAL: Moves all extremities. SKIN: Dry. LABORATORY DATA: WBC 6.85, hemoglobin 8.3, hematocrit 26.5, and platelets 300. IMPRESSION: 1. Symptomatic anemia. Status post 2 units of PRBCs. GI has been consulted for melena. Underwent colonoscopy. 2. History of diverticulosis. 3. History of esophageal stricture and dilation. 4. History of atrial fibrillation. Rate is controlled on beta blockers. No anticoagulation due to gastrointestinal bleed. 5. Hypertension. Stable on Diovan and metoprolol. 6. Gastroesophageal reflux disease. She is on PPI. 7. History of allergies. Aware, stable. 8. Debility. PT consulted. Lives at home by herself in a trailer. SNF evaluation is pending. 9. Deep vein thrombosis prophylaxis. No chemical anticoagulation due to gastrointestinal bleed and anemia. PLAN: We will continue current treatment. DISPOSITION: To [facility] once approved. Dictated by DL Vigil Solo Amaya MD MY/MODL /[id number] Seen and examined on 09/13/2019. Agree with the findings and plan as documented by DL Johnson. KARMA
[2019-09-13] MEDS: TEMAZEPAM 15 MG CAP PO SCH (22:09)
[2019-09-14] VITALS (8 sets, daily range): BP systolic 115–149; BP diastolic 49–72
[2019-09-14] MEDS: PANTOPRAZOLE 40 MG 10ML VIAL IV SCH (09:03)
[2019-09-14] MEDS: SUCRALFATE 1 GM TAB PO SCH ×4 (09:03→20:04)
[2019-09-14] MEDS: VALSARTAN 160 MG TAB PO SCH (09:04)
[2019-09-14] MEDS: OXYBUTYNIN CHLORIDE XL 5 MG TAB PO SCH (09:04)
[2019-09-14] MEDS: METOPROLOL TARTRATE 50 MG TAB PO SCH ×2 (09:04→17:37)
[2019-09-14] MEDS: ESCITALOPRAM OXALATE 10 MG TAB PO SCH (09:04)
[2019-09-14] MEDS: HYDROCHLOROTHIAZIDE 25 MG TAB PO SCH (09:04)
[2019-09-14] MEDS: ACETAMINOPHEN/CODEINE 300MG - 30MG TAB PO PRN ×3 (09:09→22:01)
--- NOTE | 2019-09-14 12:24 | Progress Note ---
DATE: 09/14/2019 INSIDE TESTER: Dr. Haro with GI. CHIEF COMPLAINT: GI bleed, dysphagia, and generalized weakness. SUBJECTIVE: The patient is resting in bed, tolerating diet. She denies any nausea, vomiting, chest pain, or shortness of breath. PHYSICAL EXAMINATION: VITAL SIGNS: Temperature 97.6, pulse is 67, respirations 20, blood pressure 149/61, and oxygen 95% on room air. GENERAL: No acute distress. HEENT: Normocephalic and atraumatic. NECK: Supple. CARDIOVASCULAR: Regular rate and rhythm. LUNGS: Clear to auscultation. ABDOMEN: Soft and nontender. NEUROLOGIC: Alert, awake, and oriented x3. MUSCULOSKELETAL: Moves all extremities. SKIN: Dry. PSYCH: Calm. IMPRESSION: 1. Symptomatic anemia. Status post 2 units of PRBC. Underwent EGD, which showed hiatal hernia and gastritis per GI. Hemoglobin is stable. 2. History of diverticulosis. 3. History of esophageal stricture and dilation. 4. History of atrial fibrillation. Rate is controlled on beta blockers. No anticoagulation due to gastrointestinal bleed. 5. Hypertension. Stable on metoprolol and Diovan. 6. History of gastroesophageal reflux disease/gastritis. Continue on PPI. 7. History of sinus allergies. Aware and stable. 8. Debility. PT consulted. SNF evaluation pending. 9. Deep vein thrombosis prophylaxis. No chemical anticoagulation due to gastrointestinal bleed and anemia. PLAN: To continue current treatment, physical therapy and to SNF upon approval. Dictated by DL Vigil Solo Amaya MD MY/MODL /[id number]
--- NOTE | 2019-09-14 12:30 | NUR ---
Received call from Monica Carmichael CM with [facility], regarding SNF referral. States last PT note has pt walking 220 ft. Said she doesn't really see criteria for SNF, since they typically dc pts at 150 ft. Requesting today's PT note and most recent MD note. CM faxed PT and MD note to Monica at [phone]. Monica stated that she may have to have medical artist speak with Dr. Amaya. States will call CM back with update. Valery Zeng CM updated on status of referral.
[2019-09-14] MEDS: PANTOPRAZOLE SOD 40 MG TABEC PO SCH (17:30)
[2019-09-14] MEDS: TEMAZEPAM 15 MG CAP PO SCH (20:04)
[2019-09-14] MEDS: DICLOFENAC SOD 1% GEL 100 GM TUBE TP SCH (22:11)
[2019-09-15] VITALS (8 sets, daily range): BP systolic 109–132; BP diastolic 49–84
[2019-09-15 05:21] LABS: BASOPHILS % 0.3 % (0.0-1.0); EOSINOPHILS # (AUTO) 0.2 (0.0-0.4); EOSINOPHILS % 3.9 % (0.0-6.0); LYMPHOCYTES # (AUTO) 0.9 (1.0-3.2); LYMPHOCYTES % 14.8 % (18.0-39.1); MEAN CORPUSCULAR HEMOGLOBIN 27.8 pg (28-32); MEAN CORPUSCULAR HGB CONC 31.7 g/dL (31-35); MEAN CORPUSCULAR VOLUME 87.8 fL (81-99); MONOCYTES # (AUTO) 0.7 (0.2-0.8); MONOCYTES % 12.3 % (4.4-11.3); NEUTROPHILS # (AUTO) 4.1 (2.1-6.9); NEUTROPHILS % 68.2 % (38.7-80.0); PLATELET COUNT 284 x10e3/uL (140-360); RED BLOOD COUNT 2.55 x10e6/uL (3.6-5.1); RED CELL DISTRIBUTION WIDTH 17.5 % (11.7-14.4)
[2019-09-15 05:27] LABS: HEMATOCRIT 22.4 % (34.2-44.1); HEMOGLOBIN 7.1 g/dL (12.0-16.0)
[2019-09-15 05:44] LABS: ANION GAP 10.7 mmol/L (8-16); BLOOD UREA NITROGEN 22 mg/dL (7-26); BUN/CREATININE RATIO 27 (6-25); CALCIUM 8.7 mg/dL (8.4-10.2); CARBON DIOXIDE 29 mmol/L (22-29); CHLORIDE 100 mmol/L (98-107); CREATININE, SERUM 0.82 mg/dL (0.57-1.11); EST GLOMERULAR FILTRATION RATE > 60 ML/MIN (60-); GLUCOSE 91 mg/dL (74-118); SODIUM 137 mmol/L (136-145)
[2019-09-15 05:46] LABS: POTASSIUM 2.7 mmol/L (3.5-5.1)
--- NOTE | 2019-09-15 06:08 | NUR ---
CALLED DR DUTTA TO NOTIFY OF PATIENTS POTASSIUM OF 2.7 AND HGB 7.1. LEFT MESSAGE FOR CALL BACK.
[2019-09-15] MEDS ORDERED: POTASSIUM CHLORIDE 20 MEQ TAB CR PO SCH ×2 (07:30→11:30)
[2019-09-15] MEDS: SUCRALFATE 1 GM TAB PO SCH ×4 (08:55→19:51)
[2019-09-15] MEDS: PANTOPRAZOLE SOD 40 MG TABEC PO SCH ×2 (08:55→16:37)
[2019-09-15] MEDS: OXYBUTYNIN CHLORIDE XL 5 MG TAB PO SCH (08:56)
[2019-09-15] MEDS: VALSARTAN 160 MG TAB PO SCH (08:56)
[2019-09-15] MEDS: ESCITALOPRAM OXALATE 10 MG TAB PO SCH (08:56)
[2019-09-15] MEDS: DICLOFENAC SOD 1% GEL 100 GM TUBE TP SCH ×3 (08:56→19:51)
[2019-09-15] MEDS: METOPROLOL TARTRATE 50 MG TAB PO SCH ×2 (08:56→16:37)
[2019-09-15] MEDS: HYDROCHLOROTHIAZIDE 25 MG TAB PO SCH (08:56)
[2019-09-15] MEDS: ACETAMINOPHEN/CODEINE 300MG - 30MG TAB PO PRN (12:26)
--- NOTE | 2019-09-15 16:05 | Progress Note ---
DATE: 09/15/2019 ACETONE RECOVERY WORKER: Dr. Haro with GI. CHIEF COMPLAINT: GI bleed, dysphagia, and generalized weakness. SUBJECTIVE: The patient is seen with no acute distress. Tolerating diet. She denies any nausea, vomiting, chest pain, or shortness of breath. Per family and the patient, she had a bowel movement two days ago, which was dark. Hemoglobin stable at 8. PHYSICAL EXAMINATION: VITAL SIGNS: Temperature 98.3, pulse is 83, respirations 20, blood pressure 123/49, and pulse ox is 100% on room air. GENERAL: No acute distress. HEENT: Normocephalic and atraumatic. NECK: Supple. CARDIOVASCULAR: Regular rate and rhythm. LUNGS: Clear to auscultation. ABDOMEN: Soft and nontender. NEUROLOGIC: Alert, awake, and oriented x3. MUSCULOSKELETAL: Moves all extremities. SKIN: Dry. LABORATORY DATA: WBC 5.93, hemoglobin 8.0, hematocrit 22.4, and platelets 284. Sodium 137, potassium 2.7, creatinine 0.8, and estimated GFR is greater than 60. IMPRESSION: 1. Symptomatic anemia, status post 2 units of PRBC. Underwent esophagogastroduodenoscopy, which showed hiatal hernia and gastritis per GI. Hemoglobin dropped to 7.1. Repeat hemoglobin is 8.0 today. 2. Hypokalemia. Potassium 2.7. We will give supplement and recheck. 3. History of diverticulosis. 4. History of esophageal stricture and dilation per GI. 5. History of atrial fibrillation, rate controlled, on beta-blockers. No anticoagulation due to gastrointestinal bleed. 6. Hypertension, stable, on metoprolol and Diovan. 7. History of gastroesophageal reflux disease/gastritis. Continue on PPI. 8. Debility. Physical Therapy consulted. Denied for SNF. We will plan on discharge home with home health. 9. Deep vein thrombosis prophylaxis. No chemical anticoagulation due to gastrointestinal bleed. PLAN: To continue current treatment, we will replace potassium and repeat labs in a.m. Dictated by DL Vigil Solo Amaya MD MY/MODL /[id number]
[2019-09-15] MEDS ORDERED: POTASSIUM CHLORIDE 20 MEQ TAB CR PO NR (19:00)
[2019-09-15] MEDS: HYDROCODONE/APAP 5MG-325MG TAB PO PRN (20:04)
[2019-09-15] MEDS: TEMAZEPAM 15 MG CAP PO SCH (22:49)
[2019-09-16] VITALS (8 sets, daily range): BP systolic 95–153; BP diastolic 57–89
[2019-09-16 05:39] LABS: ANION GAP 11.7 mmol/L (8-16); CALCIUM 9.2 mg/dL (8.4-10.2); CREATININE, SERUM 0.9 mg/dL (0.57-1.11); POTASSIUM 3.7 mmol/L (3.5-5.1)
[2019-09-16 05:55] LABS: HEMOGLOBIN 7.2 g/dL (12.0-16.0)
[2019-09-16 06:08] LABS: HEMATOCRIT 22.5 % (34.2-44.1)
--- NOTE | 2019-09-16 06:11 | NUR ---
PATIENTS HEMOGLOBIN CAME BACK AT 7.1 TOLD THEM TO REDRAW BECAUSE THIS HAPPENED YESTERDAY AND REDRAW SHOWS 8.0 AT 10AM, REDRAW CAME BACK AT 7.2. CALLED DR. DUTTA AND NOTIFIED OF CHANGE. NO ORDERS AT THIS TIME.
[2019-09-16] MEDS: OXYBUTYNIN CHLORIDE XL 5 MG TAB PO SCH (09:13)
[2019-09-16] MEDS: HYDROCODONE/APAP 5MG-325MG TAB PO PRN ×2 (09:13→20:29)
[2019-09-16] MEDS: VALSARTAN 160 MG TAB PO SCH (09:13)
[2019-09-16] MEDS: ESCITALOPRAM OXALATE 10 MG TAB PO SCH (09:13)
[2019-09-16] MEDS: DICLOFENAC SOD 1% GEL 100 GM TUBE TP SCH ×3 (09:13→20:29)
[2019-09-16] MEDS: METOPROLOL TARTRATE 50 MG TAB PO SCH ×2 (09:13→17:00)
[2019-09-16] MEDS: PANTOPRAZOLE SOD 40 MG TABEC PO SCH ×2 (09:13→16:30)
[2019-09-16] MEDS: HYDROCHLOROTHIAZIDE 25 MG TAB PO SCH (09:13)
[2019-09-16] MEDS: SUCRALFATE 1 GM TAB PO SCH ×4 (09:13→20:28)
[2019-09-16] MEDS ORDERED: SODIUM CHLORIDE 0.9% 250ML 250 ML IV NR (11:15)
[2019-09-16] MEDS ORDERED: FUROSEMIDE INJ 10 MG/ML 2 ML VIAL IV PRN (11:15)
--- NOTE | 2019-09-16 12:37 | NUR ---
Met with patient and her friends and . Monica Bacon. Pt agrees with [place] plan of home health and signed choice letter for [facility]. Copy give to pt, and original placed on chart. Pt will not be returning to her home upon discharge, but will be going to her friends home that is on the facesheet ([facility]). This was noted on facesheet sent to [facility]. Clinicals faxed to [facility], and rec'd fax confirmation. Notified Cat Brown liaison for [facility]. [facility] office [phone] fax: [phone] liaison: Mariann Brown cell [phone]
--- NOTE | 2019-09-16 13:48 | Progress Note ---
DATE: 09/16/2019 MOLASSES COLORING OPERATOR: Dr. Haro with GI. CHIEF COMPLAINT: GI bleed, dysphagia, and generalized weakness. SUBJECTIVE: The patient is seen, sitting up in a chair, visiting with family. She denies any chest pain, shortness of breath, nausea, or vomiting. Had a bowel movement this morning, which was brown. Hemoglobin is down to 7.2 this morning. We will transfuse 1 unit of blood. PHYSICAL EXAMINATION: VITAL SIGNS: Temperature 97.5, pulse is 68, respirations 18, blood pressure 123/67, and pulse ox is 98% on room air. GENERAL: No acute distress. HEENT: Normocephalic and atraumatic. NECK: Supple. CARDIOVASCULAR: Regular rate and rhythm. LUNGS: Clear to auscultation. ABDOMEN: Soft and nontender. NEUROLOGIC: Alert, awake, and oriented x3. MUSCULOSKELETAL: Moves all extremities. SKIN: Dry. LABORATORY DATA: H and H this morning, 7.2 and 22.5. Sodium 139, potassium 3.7, creatinine 0.9, estimated GFR is 59, BUN and creatinine . IMPRESSION: 1. Symptomatic anemia, status post 2 units of PRBC. Hemoglobin is 7.2 today. We will transfuse one more unit. Status post EGD per GI, which showed gastritis and hiatal hernia. 2. Hypokalemia. Replaced. 3. History of diverticulosis. 4. History of esophageal stricture and dilation per GI. 5. History of atrial fibrillation. Rate is controlled on beta blockers. No anticoagulation due to gastrointestinal bleed. 6. Hypertension. Stable on metoprolol and Diovan. 7. History of gastroesophageal reflux disease/gastritis. Continue PPI. 8. Debility. Physical therapy working with the patient. We will consult for home health PT/OT. 9. Deep venous thrombosis prophylaxis. No chemical anticoagulation due to gastrointestinal bleed. PLAN: To transfuse 1 unit of PRBC today. Consult Case Management for home PT/OT. Dictated by DL Vigil Solo Amaya MD MY/MODL /[id number]
--- NOTE | 2019-09-16 14:45 | NUR ---
Visit made by the Spiritual Care Department Pastoral Visitor, Mayo Rodriges. PV provided pastoral presence, prayer, communion, hospitality, and supportive listening. Pastoral Visitor informed pt/family of the scope of [facility] and availability. LEFTY JOHNSON Dye [employer] Tender Spiritual Care Department O: [phone] Pager: [phone] ([phone] number calling from)
--- NOTE | 2019-09-16 17:05 | NUR ---
RCD PT FROM OBS BY WHEEL CHAIR PT IS ALERT AND ORIENTED VITALS CHECKED PT RESTING ON BED FAMILY AT BED SIDE BED LOW AND LOCKED CALL LIGHT IN REACH
[2019-09-16] MEDS ORDERED: SODIUM CHLORIDE 0.9% 250ML 250 ML ONE (17:20)
--- NOTE | 2019-09-16 17:45 | NUR ---
blood transfusionn started after verified with another RN and vitals and spend 15 mts with pt
--- NOTE | 2019-09-16 19:15 | NUR ---
PT ON BLOOD TRANSFUSION PT RESTING ON BED BED SIDE REPORT GIVEN TO ONCOMING NURSE
--- NOTE | 2019-09-16 19:30 | NUR ---
received report from day nurse. patient is resting comfortably in the bed. bed is in the lowest position and call jarrell is within reach. will continue to monitor patient.
--- NOTE | 2019-09-16 21:30 | NUR ---
unit of blood is complete. patient tolerated procedure well. no adverse reactions observed.
[2019-09-17] VITALS: BP 163/77
[2019-09-17] MEDS ORDERED: TEMAZEPAM 7.5 MG CAP PO PRN (00:45)
[2019-09-17 04:00] VITALS: BP 145/64
[2019-09-17 05:21] LABS: HEMATOCRIT 29.5 % (34.2-44.1); HEMOGLOBIN 9.6 g/dL (12.0-16.0)
--- NOTE | 2019-09-17 07:23 | NUR ---
report given to day nurse. patient is resting comfortably in bed. bed is in lowest position and call light is within reach.
[2019-09-17 08:00] VITALS: BP 152/77
[2019-09-17 08:14] VITALS: BP 152/77
[2019-09-17] MEDS: SUCRALFATE 1 GM TAB PO SCH ×2 (08:25→11:22)
[2019-09-17] MEDS: PANTOPRAZOLE SOD 40 MG TABEC PO SCH (08:26)
[2019-09-17] MEDS: VALSARTAN 160 MG TAB PO SCH (08:27)
[2019-09-17] MEDS: ESCITALOPRAM OXALATE 10 MG TAB PO SCH (08:27)
[2019-09-17] MEDS: HYDROCHLOROTHIAZIDE 25 MG TAB PO SCH (08:27)
[2019-09-17] MEDS: OXYBUTYNIN CHLORIDE XL 5 MG TAB PO SCH (08:27)
[2019-09-17] MEDS: METOPROLOL TARTRATE 50 MG TAB PO SCH (08:28)
[2019-09-17] MEDS: DICLOFENAC SOD 1% GEL 100 GM TUBE TP SCH (08:28)
[2019-09-17 11:41] VITALS: BP 119/61
--- NOTE | 2019-09-17 13:11 | NUR ---
PT reevaluated pt. CM spoke to Aubree with PT. Pt able to ambulate 200 ft and get up/down 5 steps. Pt to discharge home today with home health. IMM letter delivered and explained to pt. She verbalized understanding. Signed copy placed in chart. Copy to pt. Home health information printed and given to pt. Pt's friend Monica Bacon stated that they have already called him and he has their contact information. Cat with [facility] states they will be able to admit pt tomorrow. [facility]
--- NOTE | 2019-09-17 15:21 | NUR ---
Pt discharged home at this time. 0 s/s of acute distress noted. Denies any pain at time of discharge. Pt verbalized understanding of all discharge instructions and follow up appts.
--- NOTE | 2019-09-18 11:57 | Discharge Summary ---
PRIMARY CARE PHYSICIAN: Dr. Kaelyn Sharma at [facility]. FINAL DIAGNOSES: 1. Symptomatic anemia. 2. Upper GI bleed. 3. History of diverticulosis. 4. History of esophageal stricture and dilation. 5. History of atrial fibrillation. 6. Hypertension. 7. History of bioprosthetic valve replacement. 8. Debility. CONSULTANTS: Dr. Haro with GI. PROCEDURES: EGD was done, which showed gastritis. Biopsies taken and transfusion of 3 units of PRBCs. HISTORY: Per HPI. HOSPITAL COURSE: This is an 89-year-old female, who presented with generalized weakness. Upon arrival, she was noted to have symptomatic anemia with a hemoglobin of 5.7. She had no balta bleeding. GI was consulted and underwent EGD, which showed gastritis. She received 2 units of PRBCs over her stay. Physical therapy was consulted to evaluate and treat. She progressively improved, walking up to 200 feet and climbing stairs with minimal to no assist. Today hemoglobin is stable above 8, vital signs stable, tolerating diet, we will discharge home to follow up with her PCP and GI in 1 to 2 weeks. PHYSICAL EXAMINATION: VITAL SIGNS: Temperature 97.4, pulse is 69, respirations 17, blood pressure 119/61, pulse ox 98% on room air. GENERAL: No acute distress. HEENT: Normocephalic, atraumatic. NECK: Supple. LUNGS: Clear to auscultation. CARDIOVASCULAR: Regular rate and rhythm. EXTREMITIES: Moves all extremities. SKIN: Dry and intact. CONDITION AT DISCHARGE: Improved and stable. DISCHARGE MEDICATIONS: Please see medication reconciliation list. FOLLOWUP: Follow up with PCP and GI in 1 to 2 weeks. TIME SPENT: Total time of discharge is 32 minutes. Dictated by DL Vigil Ellenching Bryson Amaya MD MY/MODL /[id number] cc: Dr. Kaelyn Sharma
== END 2019-09-17 15:23 | disposition home health service (06) | DRG 378 ==
LOC: ER 11:51 → ERHOLD 14:20 → IMCU 21:24 → MED/SURG2 09-16 17:03
PROVIDERS: ADMIT Internal Medicine; ATTEND Internal Medicine
PROC: 0DB78ZX Excision of Stomach, Pylorus, Via Natural or Artificial Opening Endoscopic, Diagnostic (ICD-10-PCS; principal; 2019-09-09)
PROC: 30233N1 Transfusion of Nonautologous Red Blood Cells into Peripheral Vein, Percutaneous Approach (ICD-10-PCS; 2019-09-09)
DX: K29.71 Gastritis, unspecified, with bleeding (principal); D62 Acute posthemorrhagic anemia; R13.10 Dysphagia, unspecified; Z79.01 Long term (current) use of anticoagulants; Z95.2 Presence of prosthetic heart valve; K29.70 Gastritis, unspecified, without bleeding; E87.6 Hypokalemia; K21.9 Gastro-esophageal reflux disease without esophagitis; I48.91 Unspecified atrial fibrillation; I10 Essential (primary) hypertension
CPT/HCPCS: 36415; 43239; 71045; 80048; 80053; 81001; 82550; 82553; 82948; 83690; 83735; 83880; 84443; 84484; 85014; 85018; 85025; 85610; 85730; 86850; 86900; 86920; 87086; 88305; 88312; 93005; 97139; 99284; J1940; J2001; J2405; J7030; J7050; P9016